=== PATIENT | female | born 1955 | race Caucasian/White ===

== ENCOUNTER 2017-08-06 15:28 | Emergency (ER) | payer MEDICAID ==
[~2017-08-06] VITALS: Ht 167.6 cm; Wt 50.8 kg
[~2017-08-06 15:28] MED LIST: CALCIUM PO; CHOL100012 PO; LEVO100T5 PO; LINESS PO; TRAZ100T15 PO; [UNRECOGNIZED DRUG - OTHER] PO
[2017-08-06 15:32] VITALS: BP 138/87
[2017-08-06] MEDS ORDERED: ACETAMINOPHEN 325 MG TABLET PO ONE (16:00)
[2017-08-06] MEDS ORDERED: ACETAMINOPHEN 325 MG TABLET ONE (16:02)
== END 2017-08-06 17:04 | disposition home or self-care (01) ==
LOC: ED 17:00
DX: S63.502A Unspecified sprain of left wrist, initial encounter (principal); S70.02XA Contusion of left hip, initial encounter; S80.02XA Contusion of left knee, initial encounter; W01.0XXA Fall on same level from slipping, tripping and stumbling without subsequent striking against object, initial encounter; Y93.01 Activity, walking, marching and hiking; Y92.488 Other paved roadways as the place of occurrence of the external cause; Y99.8 Other external cause status
CPT/HCPCS: 29125

== ENCOUNTER 2019-02-10 17:55 | Inpatient (IN) | payer MEDICAID ==
[~2019-02-10] VITALS: Ht 167.6 cm; Wt 40.3 kg
[~2019-02-10 17:55] MED LIST changes: +TRAZ-137 PO; -TRAZ100T15 PO
[2019-02-10 18:30] LABS: BASOPHILS # (AUTO) 0.03 x10^3/uL (0-0.1); BASOPHILS % (AUTO) 1 % (0-1); EOSINOPHILS # (AUTO) 0.11 x10^3/uL (0-0.4); EOSINOPHILS % (AUTO) 2 % (1-7); LYMPHOCYTES # (AUTO) 1.29 x10^3/uL (1-3.4); LYMPHOCYTES % (AUTO) 28 % (22-44); MD NO; MEAN CORPUSCULAR HEMOGLOBIN 32.6 pg (27.0-34.8); MEAN CORPUSCULAR HGB CONC 34.5 g/dL (32.4-35.8); MEAN CORPUSCULAR VOLUME 94.7 fL (80-100); MEAN PLATELET VOLUME 9.1 fL (7.4-10.4); MONOCYTES # (AUTO) 0.39 x10^3/uL (0.2-0.8); MONOCYTES % (AUTO) 8 % (2-9); NEUTROPHILS % (AUTO) 61 % (42-75); PLATELET COUNT 182 x10^3/uL (130-400); RED BLOOD COUNT 4.18 x10^6/uL (3.82-5.3); RED CELL DISTRIBUTION WIDTH 12.9 % (9.6-15.2)
[2019-02-10] MEDS ORDERED: ASPIRIN 81 MG TABLET CHEW PO ONE (18:30)
[2019-02-10] MEDS ORDERED: SODIUM CHLORIDE FLUSH 10ML SYR IVF ONE (18:30)
[2019-02-10] MEDS ORDERED: ONDANSETRON 2MG/ML, 2ML IVPush ONE (18:30)
[2019-02-10] MEDS ORDERED: NITROGLYCERIN SINGLE TAB 0.4 MG SL PRN (18:30)
[2019-02-10] MEDS ORDERED: MORPHINE SULFATE 4 MG/ML, 1ML IVPush PRN (18:30)
[2019-02-10 18:37] LABS: ALBUMIN 4.2 g/dL (3.4-5.0); ANION GAP 8 mmol/L (5-15); CALCIUM 9.4 mg/dL (8.5-10.1); CHLORIDE 103 mmol/L (98-107); CREATININE 0.76 mg/dL (0.55-1.02)
[2019-02-10 18:41] LABS: TROPONIN I < 0.015 ng/mL (0.000-0.045)
--- NOTE | 2019-02-10 18:49 | NUR ---
SECOND EKG BEING COMPLETED.
[2019-02-10] MEDS ORDERED: ONDANSETRON 2MG/ML, 2ML ONE (19:01)
[2019-02-10] MEDS ORDERED: MORPHINE SULFATE 4 MG/ML, 1ML ONE (19:05)
[2019-02-10] MEDS ORDERED: ASPIRIN 81 MG TABLET CHEW ONE (19:13)
--- NOTE | 2019-02-10 19:14 | NUR ---
MEDICATED FOR CHEST PAIN AND TO CT
--- NOTE | 2019-02-10 20:20 | NUR ---
TO BATHROOM, STEADY GAIT. AWARE OF INTENT TO ADMIT
[2019-02-10] MEDS ORDERED: THYR60TA12 PO (20:27)
--- NOTE | 2019-02-10 20:44 | NUR ---
RPT TO HEIDI PRUITT
--- NOTE | 2019-02-10 20:57 | NUR ---
REPORT RECEIVED FROM TATI PRUITT.
[2019-02-10] MEDS ORDERED: ENALAPRILAT 1.25 MG/ML, 2ML IVPush PRN (21:30)
[2019-02-10] MEDS ORDERED: KETOROLAC 30 MG/1 ML IV PRN (21:30)
[2019-02-10] MEDS ORDERED: NITROGLYCERIN 0.4 MG/SPRAY SL PRN (21:30)
[2019-02-10] MEDS ORDERED: ENOXAPARIN 40 MG/0.4 ML SQ SCH (21:30)
[2019-02-10] MEDS ORDERED: ONDANSETRON 2MG/ML, 2ML IVPush PRN (21:30)
[2019-02-10] MEDS ORDERED: ACETAMINOPHEN 325 MG TABLET PO PRN (21:30)
[2019-02-10] MEDS ORDERED: NITROGLYCERIN 0.4 MG BOTTLE (25 TABS) SL PRN (21:30)
[2019-02-10] MEDS ORDERED: morphine SULFATE 10 MG/ML, 1ML IVPush PRN (21:30)
[2019-02-10 21:33] VITALS: BP 125/72
[2019-02-10] MEDS: TRAZODONE 50MG TABLET PO PRN ×2 (22:03→23:02)
[2019-02-10 22:12] LABS: TROPONIN I < 0.015 ng/mL (0.000-0.045)
[2019-02-10 22:33] LABS: FREE T4 (FREE THYROXINE) 0.86 ng/dL (0.76-1.46)
[2019-02-10] MEDS ORDERED: OMNIPAQUE 350 MG/ML, 100ML BOTTLE ONE (22:33)
[2019-02-11 02:14] VITALS: BP_SYST 89; BP_SYST 93; BP_DIAS 56; BP_DIAS 59
[2019-02-11 03:45] LABS: CHOLESTEROL, TOTAL 174 mg/dL (140-239); TRIGLYCERIDES 69 mg/dL (50-200); VLDL CHOLESTEROL 14 mg/dL (0-25)
[2019-02-11 03:48] LABS: HDL CHOL % 49 % (28-40); HDL CHOLESTEROL (DIRECT) 85 mg/dL (40-60); LDL CHOLESTEROL,CALCULATED 75 mg/dL (54-169); LDL/HDL RATIO 0.9 (0.5-3.0); TROPONIN I < 0.015 ng/mL (0.000-0.045)
[2019-02-11] MEDS ORDERED: ASPIRIN 325 MG TABLET EC PO SCH (06:00)
[2019-02-11 07:19] VITALS: BP 98/54
[2019-02-11] MEDS ORDERED: REGADENOSON 0.4 MG/5 ML SYRINGE ONE (07:56)
[2019-02-11] MEDS ORDERED: NITR0.4T SL (12:21)
== END 2019-02-11 14:34 | disposition home or self-care (01) | DRG 313 ==
LOC: ED 18:22 → EDIP 20:48 → 5SO 21:26
PROVIDERS: ADMIT Family Medicine; ATTEND Family Medicine
DX: R07.89 Other chest pain (principal); J98.11 Atelectasis; Z68.1 Body mass index [BMI] 19.9 or less, adult; E03.9 Hypothyroidism, unspecified; J44.9 Chronic obstructive pulmonary disease, unspecified; I71.2 Thoracic aortic aneurysm, without rupture; R63.6 Underweight; I71.4 Abdominal aortic aneurysm, without rupture; F51.04 Psychophysiologic insomnia; F10.21 Alcohol dependence, in remission; K21.9 Gastro-esophageal reflux disease without esophagitis; Z90.710 Acquired absence of both cervix and uterus; Z85.42 Personal history of malignant neoplasm of other parts of uterus; Z80.8 Family history of malignant neoplasm of other organs or systems; Z82.0 Family history of epilepsy and other diseases of the nervous system
CPT/HCPCS: 36415; 71046; 71275; 78452; 80048; 80061; 80307; 82040; 84439; 84443; 84484; 85025; 93005; 93017; 96374; 96375; 99285; G0378; J1650; J2405; J2785; Q9967; A9502; C9898